=== PATIENT | male | born 1965 | race Caucasian/White ===

== ENCOUNTER 2023-05-02 08:42 | Emergency (ER) | payer OTHER ==
[2023-05-02 09:02] LABS: BASOPHILS PERCENT AUTO 0.5 % (0.0-1.0); EOSINOPHILS PERCENT AUTO 2.1 % (1.0-3.0); HEMOGLOBIN 14.1 g/dL (14.0-18.0); LYMPHOCYTES PERCENT AUTO 25.2 % (20.5-50.1); MEAN CORPUSCULAR HGB CONC 33.6 g/dL (33.0-35.0); MEAN CORPUSCULAR VOLUME 83.5 fL (80-100); MONOCYTES PERCENT AUTO 9.2 % (2-8); PLATELET COUNT,PLT 251 10^3/uL (150-450); RED BLOOD CELL COUNT 5.03 10^6/uL (4.6-6.2); WHITE BLOOD CELL COUNT,WBC 6.1 10^3/uL (5.0-10.0)
[2023-05-02] MEDS ORDERED: Pantoprazole 40 MG Vial IVPUSH ONE (09:07)
[2023-05-02] MEDS ORDERED: Lidocaine 2% Viscous Solution 15 ML UD PO ONE (09:08)
[2023-05-02] MEDS ORDERED: Aluminum Hydroxide/Magnesium Hydroxide/Simethicone Susp 30 ML Cup PO ONE (09:08)
[2023-05-02] MEDS ORDERED: Aspirin 81 MG Tab.Chew PO ONE (09:08)
[2023-05-02 09:14] VITALS: BP 126/88; PULSE 84
[2023-05-02 09:22] LABS: ANION GAP 10.1 mEq/L (7-13); BILIRUBIN TOTAL 0.4 mg/dL (0.2-1.0); BUN/CREATININE RATIO 15.3 (No establ ref range); CALCIUM 9.2 mg/dL (8.5-10.1); CREATININE 0.98 mg/dL (0.70-1.30); EST CRCL DRUG DOSING (CG) 92.85 mL/min; POTASSIUM,K 4.1 mmol/L (3.5-5.1); PROTEIN TOTAL,TP 7.9 g/dL (6.4-8.2)
== END 2023-05-02 11:46 | disposition home or self-care (01) ==
LOC: DL.ED 08:42
DX: R07.89 Other chest pain (principal); R10.13 Epigastric pain; E66.9 Obesity, unspecified; Z68.34 Body mass index [BMI] 34.0-34.9, adult
CPT/HCPCS: 36415; 71046; 80053; 84484; 85025; 93005; 93010; 96374; 99284; 99285-25; A9270-GY; C9113